=== PATIENT | female | born 1970 | race Hispanic/Latino ===

== ENCOUNTER → 2018-05-17 | Outpatient (CLI) | payer BC | END | disposition home or self-care (01) | LOC: RAH 15:07 | PROVIDERS: ATTEND Obstetrics & Gynecology | DX: Z12.31 Encounter for screening mammogram for malignant neoplasm of breast (principal) | CPT/HCPCS: 77067 ==

== ENCOUNTER → 2022-04-11 | Outpatient (CLI) | payer BC | END | disposition home or self-care (01) | LOC: RAH 15:21 | PROVIDERS: ATTEND Obstetrics & Gynecology | DX: Z12.31 Encounter for screening mammogram for malignant neoplasm of breast (principal) | CPT/HCPCS: 77067 ==

== ENCOUNTER → 2023-12-10 | Outpatient (CLI) | payer BC | END | disposition home or self-care (01) | LOC: RAH 14:45 | PROVIDERS: ATTEND Internal Medicine Cardiovascular Disease | DX: I11.9 Hypertensive heart disease without heart failure (principal) | CPT/HCPCS: 93306 ==